=== PATIENT | male | born 1965 | race Caucasian/White ===

== ENCOUNTER 2017-05-04 06:46 | Inpatient (IN) ==
--- NOTE | 2017-05-03 21:40 | Discharge Summary ---
<Carline Mena - Last Filed: 05/03/17 21:37> Date of Encounter: 05/03/17 - Discharge Diagnosis (1) Rotator cuff tear arthropathy of right shoulder Priority: Primary Status: Acute (2) Status post total replacement of right shoulder Priority: Primary Status: Acute (3) HTN (hypertension) Priority: Secondary Status: Chronic Qualifiers: Hypertension type: essential hypertension Qualified Code(s): I10 - Essential (primary) hypertension (4) Tobacco abuse Priority: Secondary Status: Chronic - Discharge Medications Home Medications: Metoprolol XL (24 HR) Succ [Toprol Xl] 25 mg PO DAILY 01/18/16 [History] Omeprazole [PriLOSEC] 40 mg PO DAILY 08/14/16 [History] OxyCODONE Immed Rel [Roxicodone 5 MG] 5 mg PO Q6HR PRN #28 tablet 05/03/17 [Rx] Allergies/Adverse Reactions: 3 Allergy/AdvReac Type Severity Reaction Status Date / Time tramadol Allergy Nausea Verified 05/04/17 07:09 Primary care physician: Gerry Cantrell MD - Patient Status Disposition: Home, Self-Care Condition: Good - Discharge Instructions Follow Up With: Gerry Cantrell MD [Primary Care Provider] - - Hospital Course Hospital course: Mr. Hernandez is a 52 year old male - Time Spent with Patient Total time spent providing and/or coordinating discharge services: <Ismael Campbellh - Last Filed: 05/04/17 13:45> Date of Encounter: 05/04/17 Time of Encounter: 13:45 - Discharge Diagnosis (1) Rotator cuff tear arthropathy of right shoulder Priority: Primary Status: Chronic (2) Status post total replacement of right shoulder Priority: Primary Status: Acute (3) HTN (hypertension) Priority: Secondary Status: Chronic Qualifiers: Hypertension type: essential hypertension Qualified Code(s): I10 - Essential (primary) hypertension (4) Tobacco abuse Priority: Secondary Status: Chronic Primary care physician: Gerry Cantrell MD - Patient Status Functional capacity at discharge: independent ambulation Overall status at discharge: patient is progressing back to baseline - Hospital Course Hospital course: Mr. Hernandez is a 52 year old male Status post right total shoulder replacement patient discharged from same day - Time Spent with Patient Total time spent providing and/or coordinating discharge services:
--- NOTE | 2017-05-04 06:29 | History & Physical Report ---
Date of Encounter: 05/04/17 Time of Encounter: 06:29 24 Hour HP Update - Instructions Instructions: If the History and Physical is less than 30 days old and was completed prior to A.M. admission and or procedure and has NOT been updated on calendar day of procedure please complete this update prior to performing procedure. - Update Patient reports changes in Medical Condition: No Changes in examination, assessment, or condition: No Changes in Medication: No Preop tests/diagnostics Reviewed: Yes Surgery Remains Indicated: Yes Consent for Planned Operative Procedure(s) Verified: Yes - Pre-Operative Checklist Preoperative Checklist Indicated: No Prophylactic Antibiotic Ordered: Yes Is VTE Prophylaxis Indicated?: Yes
[2017-05-04] MEDS ORDERED: Dexamethasone 4 MG/ML VIAL ONE (06:57)
[2017-05-04] MEDS ORDERED: *HR* Midazolam HCl 2 MG/2 ML VIAL ONE (06:57)
[2017-05-04] MEDS ORDERED: *HR* FentaNYL (PF) 100 MCG/2 ML VIAL ONE (06:57)
[2017-05-04] MEDS ORDERED: Ondansetron 4 MG/2 ML VIAL ONE (06:57)
[2017-05-04] MEDS ORDERED: *HR* Propofol 200 MG/20 ML VIAL IVP ONE (06:58)
[2017-05-04] MEDS ORDERED: Lidocaine -MPF 2% 2 ML VIAL ONE (06:59)
[2017-05-04] MEDS ORDERED: ROPIVACAINE HCL/PF 0.5% 30 ML VIAL ONE (07:06)
[2017-05-04] MEDS ORDERED: Bupivacaine/Clonidine Syringe 1 EACH SYRINGE ONE (07:06)
[2017-05-04] MEDS ORDERED: CeFAZolin Pre 2,000 MG/100 ML 2,000 MG/100 ML BAG IVPB ONE (07:09)
[2017-05-04] MEDS ORDERED: Albuterol 2.5 MG/3 ML NEBULIZER IH ONE (07:10)
[2017-05-04] MEDS ORDERED: Lidocaine -MPF 1% 2 ML VIAL ID ONE (07:10)
[2017-05-04] MEDS ORDERED: Ringers Solution, Lactated 1,000 ML IVC SCH ×2 (07:15→10:23)
[2017-05-04] MEDS ORDERED: Albuterol 2.5 MG/3 ML NEBULIZER ONE (07:17)
--- NOTE | 2017-05-04 07:38 | Anesthesia Evaluation PreOp ---
Date of Encounter: 05/04/17 Time of Encounter: 07:35 - Past History Planned Operation: Right Total Shoulder Cardiac History: HTN Pulmonary History: Smoker FX ARTIST History: Denies Any Significant HX Other Medical History: GERD Anesthesia History: No Prior Anesthetic Complications, Past Anesthesia (Left Kne scope, Right shoulder sc ope) Alcohol Use: none Drug use: none Medications and Allergies Metoprolol XL (24 HR) Succ [Toprol Xl] 25 mg PO DAILY 01/18/16 [History] Omeprazole [PriLOSEC] 40 mg PO DAILY 08/14/16 [History] OxyCODONE Immed Rel [Roxicodone 5 MG] 5 mg PO Q6HR PRN #28 tablet 05/03/17 [Rx] 3 Allergy/AdvReac Type Severity Reaction Status Date / Time tramadol Allergy Nausea Verified 05/04/17 07:09 - Meds/Allergy Pre-op Review Medications Reviewed: Yes Allergies Reviewed: Yes Beta Blockers on Current Med List: No Anesthesia Results - Labs Laboratory Tests 11/30/15 01/18/16 03/26/16 13:00 07:33 09:45 WBC Hgb Hct Plt Count INR 1.1 Sodium 139 Potassium 4.2 Chloride 109 Carbon Dioxide 22 BUN Creatinine 08/06/16 08/06/16 04/22/17 10:43 10:43 10:10 WBC 6.8 7.3 Hgb 15.5 16.1 Hct 45.7 48.9 Plt Count 219 249 INR Sodium Potassium Chloride Carbon Dioxide BUN 13 Creatinine 04/22/17 04/22/17 10:10 10:10 WBC Hgb Hct Plt Count INR 1.0 Sodium 140 Potassium 4.1 Chloride 106 Carbon Dioxide 24 BUN Creatinine 1.06 - Imaging EKG: image reviewed (SINUS BRADYCARDIA POSSIBLE RIGHT VENTRICULAR CONDUCTION DELAY) Anesthesia Exam O2 Sat Height 1.79 m Height 1.79 m Weight 83.007 kg Weight 83.007 kg O2 Sat by Pulse Oximetry 98 Vital Signs Temp Pulse Resp BP Pulse Ox 97.9 F 58 18 134/93 98 05/04/17 07:04 05/04/17 07:04 05/04/17 07:04 05/04/17 07:04 05/04/17 07:04 Height: 5'10" Weight: 183# NPO (# of Hours): > 8 hrs Pain Scale: 0 Pain Scale Used: Numeric (1 - 10) - HEENT Pupil (Motor): Pupils equal, EOMI Mallampati: II Teeth: Missing Denture Type: Upper: Complete Oral Opening: Greater than 3 - FX ARTIST LOC: Oriented FX ARTIST Motor: Normal RUE, Normal LUE, Normal RLE, Normal LLE, Normal Face FX ARTIST Sensory: Normal: RUE, LUE, RLE, LLE, Face - Cardiac Rhythm: Regular Murmur: None JVD: No Carotid Bruit: No - Pulmonary Breath Sounds: bilateral Clear Respiratory Effort: Symmetrical Anesthesia Assess/Plan ASA Score: 2 Modified [place] Scale for Level of Consciousness: Cooperative, oriented, and tranquil Anesthetic Plan: General, Regional (Right Brachial Plexus Block) Autologous Blood: Yes Monitoring Plan: Standard Monitors Recovery Plan: PACU
[2017-05-04] MEDS ORDERED: Naloxone 0.4 MG/ML INJ IVP PRN ×2 (08:18→10:23)
[2017-05-04] MEDS ORDERED: *HR* HYDROmorphone (PF) 1 MG/ML SYRINGE IVP PRN ×2 (08:18→10:23)
[2017-05-04] MEDS ORDERED: *HR* Meperidine 25 MG/ML SYRINGE IVP PRN (08:18)
[2017-05-04] MEDS ORDERED: Ondansetron 4 MG/2 ML VIAL IVP PRN ×2 (08:18→10:23)
--- NOTE | 2017-05-04 08:22 | Anesthesia Procedures ---
Date of Encounter: 05/04/17 Time of Encounter: 08:10 Procedures: Anesthesia - Nerve Block Procedure Date: 05/04/17 Time: 08:10 Allergies/Adv Reactions: Allergies Allergy/AdvReac Type Severity Reaction Status Date / Time tramadol Allergy Nausea Verified 05/04/17 07:09 Pre-op Diagnosis: Right shoulder arthropathy Surgical Procedure: Right total shoulder replacement. Checklist: Correct Patient Identifier, Correct procedure, History checked Correct side: Right Blood Thinner: No Monitor Applied: EKG, BP, Pulse Oximetry Supplemental Oxygen via Nasal Cannula (L/min): 2 Sedation: Versed (mg): 2 Sedation: Fentanyl (mcg): 100 Indication: Post Op Analgesia Pre-op Neuro Deficits: No Block Type: Supraclavicular, Other (SCP) Catheter placed: No Sterile Technique: Yes Ultrasound used: Yes Anatomy identified: Yes Visual spread of Local: Yes Blood on Needle Aspiration: No Smooth Injection of Local: Yes Pain with Injection of Local: No Prep: Chlorhexadine Needle: 22 x 50 mm Stimuplex Local: Ropivacaine (0.5 %, 25mL Supra, 5mL SCP) Volume (cc): 30 Number of Attempts: 1 Complications: None/effective block Vitals: VSS throughout. See nursing documentation. Comments: Verbal order Dr Campbell for postop pain management. Patient tolerated well.
--- NOTE | 2017-05-04 09:31 | Orthopedic Operative Note ---
Date of procedure: 05/04/17 Pre-op diagnosis: Right shoulder cuff tear arthropathy Post-op diagnosis: same Procedure: Procedure: Total Shoulder Replacment Reverse, right Estimated blood loss: 100 cc Hardware: Metal and polyethylene replacement: Arthrex large glenoid baseplate, 2 4.5 screws. 1 6.5 screw, 42+4 glenosphere, 8 humeral stem, poly insert 3 and 6 metal Exam Under anesthesia: Full motion and no instability Procedural Notes: Irreparable tear supraspinatus tendon. Operative procedure: The patient was brought to the operating room and placed on the operating room table. After general anesthesia was administered the operative shoulder was examined. Findings were noted. The patient was placed in the modified beachchair position. All pressure points were padded appropriately. And the head was stabilized in the neutral position. The operative extremity was prepped and draped in the sterile surgical fashion. The patient received IV antibiotics prior to skin incision. A standard deltopectoral approach was made to the operative shoulder. Incision was made to the skin and subcutaneous tissue,hemo stasis was obtained with Bovie cautery. Using careful blunt dissection the cephalic vein was identified and mobilized medially. The deltopectoral interval was developed and the clavipectoral fascia was incised. The subscap was released off the lesser tuberosity and tagged with #2 FiberWire suture subscap was irreparable. The humerus was dislocated patient noted to have irreparable tear supraspinatus tendon, and the humeral cut was made along the anatomic neck. Anterior and posterior Bankart retractors were placed to expose the glenoid. The glenoid guide was seated and the centering hole was made. It was reamed with the appropriate reamer. The large baseplate was seated and secured with (2) 4.5 screws and one 6.5 screw. The baseplate was irrigated and dried and the 42+4 Glenosphere was seated and secured with the Ballard taper. The Ballard taper was tested and found to be secure the humerus was redislocated and prepared with the diaphyseal reamers, followed by a broaching process up to the appropriate size 8 in the patient's anatomic version. The metaphyseal reamer was then utilized. Trial reduction found the shoulder to be relocatable. Trial components were removed and the appropriate 8 stem was impacted in place in the patient's anatomic version. Trial reduction found the shoulder to be relocatable and stable with the appropriate 3 Nay 6 metal Trial component was removed and the real implants was seated and secured the shoulder was reduced. The shoulder had excellent motion and excellent stability and no evidence of dislocation. The deep tissue was irrigated with pulse irrigation. Shoulder was closed by the PA. The deltopectoral interval was closed with a running #1 PDS suture, subcutaneous tissue was irrigated and closed with 0 PDS suture, the skin was closed with Dermabond. The patient was placed in a sterile dressing, abduction brace and extubated. The patient was then transferred to the recovery room in stable condition. Anesthesia: JOSE Surgeon: Ismael Campbell Multimedia Developer: Carline Mena Condition: stable Disposition: PACU
--- NOTE | 2017-05-04 10:07 | Anesthesia Evaluation Post Op ---
Date of Encounter: 05/04/17 Time of Encounter: 10:06 - Vital Signs Vital Signs: Vital Signs/O2 Sat, Most Current Temp Pulse Resp BP Pulse Ox 97.9 F 72 18 138/95 98 05/04/17 07:04 05/04/17 08:25 05/04/17 08:25 05/04/17 08:25 05/04/17 08:25 - Lungs Lungs: Clear Ascult./Percussion - Airway Airway: Non-obstructed - Cardiovascular Regular Rate - Mental Status Mental Status: Alert & Oriented, Answers Appropriately - Pain Pain Scale: 0 Pain Scale used: Numeric (1 - 10) - Nausea Vomiting Nausea Vomiting: Not Present - Hydration Hydration: Ice chips, Has not voided - Discharge PostOp Status: Transfer Patient to floor
[2017-05-04] MEDS ORDERED: *HR* OxyCODONE Immed Rel 5 MG TABLET PO PRN ×2 (10:23)
[2017-05-04] MEDS ORDERED: Metoprolol XL (24 HR) Succ 25 MG TAB.ER.24H PO SCH (10:23)
[2017-05-04 13:53] VITALS: BP 115/77
[2017-05-04] MEDS ORDERED: ceFAZolin 2,000 MG in D5% in Water 100 ML IVPB SCH (16:00)
[2017-05-04] MEDS ORDERED: *HR* Enoxaparin 30 MG/0.3 ML SYRINGE SQ SCH ×2 (18:00)
[2017-05-04] MEDS ORDERED: MOM Conc 10 ML UD.LIQ PO PRN (21:00)
[2017-05-04] MEDS ORDERED: Sennosides 8.6 MG TABLET PO PRN (21:00)
[2017-05-04] MEDS ORDERED: Temazepam 15 MG CAPSULE PO PRN (21:00)
--- NOTE | 2017-05-05 15:26 | Physician Discharge Referral ---
Home Health/Hosp Referral Info Transfer to: Home Health Attending Provider: Provider in Charge Post Discharge: PCP - Diagnosis (1) Rotator cuff tear arthropathy of right shoulder Priority: Primary Status: Chronic (2) Status post total replacement of right shoulder Priority: Primary Status: Acute (3) HTN (hypertension) Priority: Secondary Status: Chronic (4) Tobacco abuse Priority: Secondary Status: Chronic - Respiratory Orders None Smoking Cessation: Smoking cessation has been advised. For more information, call the [place] Tobacco Quit Line at 2-444-LESW-NOW. - Diet/Nutrition Diet/Nutrition Orders: Regular - Activity Activity Orders: Up ad kimberly, Ambulate - Services Needed Following services are medically necessary services: Nursing, Home Health Aide, Physical Therapy, Occupational Therapy Home Care Orders: Opsite dressing, leave intact until first post-operative visit. If dressing becomes >50% saturated, contact office, remove dressing and place appropriate dressing in its place. Do not allow for dressing to get wet. Shoulder Precautions x 6 weeks. Apply cold therapy wrap 3-6x/day for 20 minutes at a time. Encourage ambulation throughout the day. Use Incentive spirometer 10x/hour. Elevate affected extremity above heart as tolerated. NWB to affected upper extremity x 6 weeks. Will remove brace at first post-operative appointment. OK to remove during PT/ OT and Home exercises. - Transfer Medications Home Medications: Metoprolol XL (24 HR) Succ [Toprol Xl] 25 mg PO DAILY 01/18/16 [History] Omeprazole [PriLOSEC] 40 mg PO DAILY 08/14/16 [History] OxyCODONE Immed Rel [Roxicodone 5 MG] 5 mg PO Q6HR PRN #28 tablet 05/03/17 [Rx] Allergies/Adverse Reactions: 3 Allergy/AdvReac Type Severity Reaction Status Date / Time tramadol Allergy Nausea Verified 05/04/17 07:09 Certification: Further, I certify that my clinical findings support that this patient is homebound (i.e. absences from home require considerable and taxing effort and are for medical reasons or cheondoism services or infrequently or short duration when for other reasons) because: Homebound Reason: Post-surgery restriction and or conditions limit ability to leave home Attestation: My signature below is to certify that this patient is under my care and that I, or nurse practitioner, or a physician's executive staff assistant working with me, has a face-to -face encounter with this patient.
== END 2017-05-04 16:55 | disposition home or self-care (01) | DRG 483 ==
LOC: SAMDAY 06:46 → 3NENU 10:27
PROVIDERS: ADMIT Orthopaedic Surgery; ATTEND Orthopaedic Surgery

== ENCOUNTER 2019-06-23 12:31 | Inpatient (IN) ==
[2019-06-23] MEDS ORDERED: Albuterol 2.5 MG/3 ML NEBULIZER IH PRN (12:56)
[2019-06-23] MEDS ORDERED: CeFAZolin Syr 2,000MG/20 ML 2,000 MG/20 ML SYRINGE IVPB ONE (12:56)
[2019-06-23] MEDS ORDERED: Ringers Solution, Lactated 1,000 ML IVC SCH ×2 (13:00→18:18)
[2019-06-23] MEDS ORDERED: ROPIVACAINE/PF/NS 0.25% 1 EACH SYRINGE INTRAART ONE (13:20)
[2019-06-23] MEDS ORDERED: Ropivacaine/PF 0.5% 30 ML VIAL ONE (13:20)
[2019-06-23] MEDS ORDERED: *HR* FentaNYL (PF) 100 MCG/2 ML VIAL ONE ×2 (13:38→15:46)
[2019-06-23] MEDS ORDERED: *HR* Midazolam HCl 2 MG/2 ML VIAL ONE (13:38)
[2019-06-23] MEDS ORDERED: *HR* Propofol 200 MG/20 ML VIAL IVP ONE (13:39)
[2019-06-23] MEDS ORDERED: *HR* Succinylcholine 200 MG/10 ML VIAL IVP ONE (13:41)
[2019-06-23] MEDS ORDERED: Lidocaine -MPF 2% 2 ML VIAL ONE (13:41)
[2019-06-23] MEDS ORDERED: Lidocaine HCL 4 ML Topical Solution (Laryng-O-Jet Kit Sterile Pak) TP ONE (13:44)
[2019-06-23] MEDS ORDERED: *HR* Labetalol 20 MG/4 ML SYRINGE IVP PRN (13:45)
[2019-06-23] MEDS ORDERED: *HR* Promethazine 25 MG/ML VIAL IVP PRN (13:45)
[2019-06-23] MEDS ORDERED: *HR* OxyCODONE Immed Rel 5 MG TABLET PO PRN (13:45)
[2019-06-23] MEDS ORDERED: Gabapentin 300 MG CAPSULE PO ONE (13:45)
[2019-06-23] MEDS ORDERED: Ethanol\\Acetic Acid\\Na Ace\\Ben 1,000 ML IRRIG.SOLN IR ONE (15:04)
[2019-06-23] MEDS ORDERED: *HR* PHENYLEPHRINE 1,000 MCG/10 ML SYRINGE IVP ONE (15:31)
[2019-06-23] MEDS ORDERED: Ondansetron 4 MG/2 ML VIAL ONE (15:35)
[2019-06-23] MEDS ORDERED: Dexamethasone 4 MG/ML VIAL ONE (15:35)
[2019-06-23] MEDS ORDERED: EPHEDrine 50 MG/ML VIAL ONE (15:58)
[2019-06-23] MEDS: *HR* HYDROmorphone (PF) 1 MG/ML SYRINGE IVP PRN ×2 (17:11→17:40)
[2019-06-23 17:26] LABS: Hematocrit 43.4 % (37.5-50.1); Hemoglobin 15.2 g/dL (12.9-16.9)
[2019-06-23] MEDS ORDERED: *HR* Enoxaparin 30 MG/0.3 ML SYRINGE SQ SCH (18:00)
[2019-06-23] MEDS ORDERED: Acetaminophen 325 MG TABLET PO PRN (18:18)
[2019-06-23] MEDS ORDERED: *HR* OxyCODONE/APAP 5/325 TABLET PO PRN (18:18)
[2019-06-23] MEDS ORDERED: MOM Conc 10 ML UD.LIQ PO PRN (18:18)
[2019-06-23] MEDS ORDERED: Naloxone 0.4 MG/ML INJ IVP PRN (18:18)
[2019-06-23] MEDS ORDERED: Ondansetron 4 MG/2 ML VIAL IVP PRN (18:18)
[2019-06-23] MEDS ORDERED: Temazepam 15 MG CAPSULE PO PRN (18:18)
[2019-06-23] MEDS ORDERED: Sennosides 8.6 MG TABLET PO PRN (18:18)
[2019-06-23] MEDS ORDERED: Ibuprofen 800 MG TABLET PO PRN (18:18)
[2019-06-24] MEDS: *HR* OxyCODONE Immed Rel 5 MG TABLET PO PRN ×3 (03:42→13:26)
[2019-06-24 05:56] LABS: Hematocrit 40.9 % (37.5-50.1)
[2019-06-24] MEDS ORDERED: *HR* Enoxaparin 30 MG/0.3 ML SYRINGE SQ SCH (06:00)
[2019-06-24 06:17] LABS: BUN/Creatinine Ratio 19 (6-26); Blood Urea Nitrogen 19 mg/dL (6-20); Calcium 9.4 mg/dL (8.6-10.3); Carbon Dioxide 23 mEq/L (23-29); Chloride 104 mEq/L (98-107); Glucose 137 mg/dL (70-105); Osmolality,Calculated 288 (280-300); Potassium 3.9 mEq/L (3.5-5.1); Sodium 137 mEq/L (136-145); eGFR For African Americans > 60 (> 60); eGFR For Non-African Americans > 60 (> 60)
[2019-06-24 07:01] VITALS: BP 118/70
[2019-06-24] MEDS ORDERED: Metoprolol XL (24 HR) Succ 25 MG TAB.ER.24H PO SCH (09:00)
[2019-06-24] MEDS ORDERED: Cyanocobalamin (B-12) 1,000 MCG TABLET PO SCH (09:00)
== END 2019-06-24 13:45 | disposition home or self-care (01) | DRG 483 ==
LOC: SAMDAY 12:31 → 3NENU 18:13
PROVIDERS: ADMIT Orthopaedic Surgery; ATTEND Orthopaedic Surgery

== ENCOUNTER 2020-07-07 18:45 | Observation (INO) ==
[2020-07-07] MEDS ORDERED: Isovue-370 500 ML BOTTLE IVP ONE (19:21)
[2020-07-07 19:27] LABS: Basophils % 0.3 %; Eosinophils # 0.1 K/mcL (0.0-0.6); Eosinophils % 1.1 %; Hematocrit 45.6 % (37.5-50.1); Hemoglobin 15.5 g/dL (12.9-16.9); Immature Granulocytes % 0.3 % (0-4); Lymphocytes # 2.9 K/mcL (0.6-4.6); Lymphocytes % 28.2 %; Mean Corpuscular Hemoglobin 32.5 pg (28.0-33.3); Mean Corpuscular Volume 95.6 fL (83.0-100.0); Mean Platelet Volume 10.2 fL (9.4-12.4); Monocytes # 0.7 K/mcL (0.0-1.3); Monocytes % 6.5 %; Neutrophils # 6.5 K/mcL (1.6-8.9); Platelet Count 254 K/mcL (140-400); Red Blood Count 4.77 M/mcL (4.19-5.50); Red Cell Distribution Width 12.7 % (11.5-14.5); Segmented Neutrophils % 63.6 %; White Blood Count 10.2 K/mcL (4.3-11.1)
[2020-07-07 19:53] LABS: Alanine Aminotransferase 12 Units/L (7-52); Albumin 4.6 g/dL (3.5-5.7); Albumin/Globulin Ratio 1.5 (1.1-2.2); Alkaline Phosphatase 81 Units/L (34-104); Aspartate Amino Transferase 12 Units/L (13-39); BUN/Creatinine Ratio 15 (6-26); Bilirubin,Total 0.3 mg/dL (0.3-1.0); Blood Urea Nitrogen 15 mg/dL (6-20); Calcium 9.7 mg/dL (8.6-10.3); Carbon Dioxide 25 mEq/L (23-29); Chloride 103 mEq/L (98-107); Glucose 88 mg/dL (70-105); Osmolality,Calculated 284 (280-300); Potassium 3.2 mEq/L (3.5-5.1); Sodium 137 mEq/L (136-145); Total Protein 7.6 g/dL (6.4-8.9); Troponin I < 0.03 ng/mL (< 0.04); eGFR For African Americans > 60 (> 60); eGFR For Non-African Americans > 60 (> 60)
[2020-07-07] MEDS ORDERED: Aspirin 325 MG TABLET PO ONE (20:55)
[2020-07-07] MEDS ORDERED: Nitroglycerin 0.4 MG TAB.SUBL SL PRN (20:55)
[2020-07-07] MEDS ORDERED: Potassium Chloride Elixir 20 MEQ/15 ML UDC PO ONE (21:22)
[2020-07-07] MEDS ORDERED: Perflutren Lipid Microsphere 1.3 ML in 0.9 % Sodium Chloride 8.7 ML IVP PRN (22:39)
[2020-07-07] MEDS ORDERED: Naloxone 0.4 MG/ML INJ IVP PRN (22:46)
[2020-07-07] MEDS ORDERED: Acetaminophen 325 MG TABLET PO PRN (22:46)
[2020-07-07] MEDS ORDERED: Ondansetron 4 MG/2 ML VIAL IVP PRN (22:46)
[2020-07-07] MEDS ORDERED: GI Cocktail 40 ML EACH PO ONE (23:01)
[2020-07-08 01:35] LABS: Mean Corpuscular HGB Conc 33.4 g/dL (31.6-35.5); Mean Corpuscular Hemoglobin 32.8 pg (28.0-33.3); Mean Corpuscular Volume 98.1 fL (83.0-100.0); Mean Platelet Volume 10.5 fL (9.4-12.4); Platelet Count 224 K/mcL (140-400); Red Blood Count 4.18 M/mcL (4.19-5.50); Red Cell Distribution Width 12.6 % (11.5-14.5); White Blood Count 7.8 K/mcL (4.3-11.1)
[2020-07-08 01:37] LABS: Hemoglobin 13.7 g/dL (12.9-16.9)
[2020-07-08 01:51] LABS: BUN/Creatinine Ratio 15 (6-26); Blood Urea Nitrogen 14 mg/dL (6-20); Carbon Dioxide 26 mEq/L (23-29); Chloride 103 mEq/L (98-107); Chol/HDL Ratio 5.1 (0-4.9); Cholesterol 137 mg/dL (< 200); Glucose 114 mg/dL (70-105); HDL Cholesterol 27 mg/dL (40-59); LDL Cholesterol,Calculated 87 mg/dL (< 100); Magnesium 1.4 mg/dL (1.6-2.6); Osmolality,Calculated 285 (280-300); Phosphorous 3.3 mg/dL (2.7-4.5); Sodium 137 mEq/L (136-145); Triglycerides 114 mg/dL (< 150); eGFR For African Americans > 60 (> 60); eGFR For Non-African Americans > 60 (> 60)
[2020-07-08 07:03] LABS: Estimated Average Glucose 123 mg/dl
[2020-07-08] MEDS: Aspirin Enteric Coated 81 MG Tablet PO SCH (07:40)
[2020-07-08] MEDS ORDERED: Potassium Chloride 40 MEQ, Lidocaine 1% 2 ML in 0.9 % Sodium Chloride 500 ML IVPB ONE (08:04)
[2020-07-08] MEDS: Nicotine 14 MG PATCH.TD24 TD SCH (16:21)
[2020-07-09 05:29] LABS: Hemoglobin 13.5 g/dL (12.9-16.9); Mean Corpuscular HGB Conc 32.9 g/dL (31.6-35.5); Mean Corpuscular Hemoglobin 31.8 pg (28.0-33.3); Mean Corpuscular Volume 96.7 fL (83.0-100.0); Mean Platelet Volume 10.1 fL (9.4-12.4); Platelet Count 232 K/mcL (140-400); Red Blood Count 4.24 M/mcL (4.19-5.50); Red Cell Distribution Width 12.4 % (11.5-14.5); White Blood Count 7.1 K/mcL (4.3-11.1)
[2020-07-09 05:52] LABS: BUN/Creatinine Ratio 15 (6-26); Blood Urea Nitrogen 14 mg/dL (6-20); Calcium 8.9 mg/dL (8.6-10.3); Carbon Dioxide 25 mEq/L (23-29); Chloride 106 mEq/L (98-107); Glucose 109 mg/dL (70-105); Osmolality,Calculated 285 (280-300); Potassium 3.8 mEq/L (3.5-5.1); Sodium 137 mEq/L (136-145); eGFR For African Americans > 60 (> 60); eGFR For Non-African Americans > 60 (> 60)
[2020-07-09] MEDS ORDERED: Regadenoson 0.4 MG/5 ML SYRINGE IVP ONE (06:00)
[2020-07-09] MEDS: Aspirin Enteric Coated 81 MG Tablet PO SCH (09:21)
[2020-07-09] MEDS: Metoprolol XL (24 HR) Succ 25 MG TAB.ER.24H PO SCH (09:21)
[2020-07-09] MEDS: Nicotine 14 MG PATCH.TD24 TD SCH (09:23)
[2020-07-10 07:53] LABS: Hematocrit 42.9 % (37.5-50.1); Hemoglobin 14.5 g/dL (12.9-16.9); Mean Corpuscular HGB Conc 33.8 g/dL (31.6-35.5); Mean Corpuscular Hemoglobin 32.7 pg (28.0-33.3); Mean Corpuscular Volume 96.6 fL (83.0-100.0); Mean Platelet Volume 10.1 fL (9.4-12.4); Platelet Count 219 K/mcL (140-400); Red Blood Count 4.44 M/mcL (4.19-5.50); Red Cell Distribution Width 12.4 % (11.5-14.5); White Blood Count 6.8 K/mcL (4.3-11.1)
[2020-07-10 08:49] LABS: INR 1.1; Prothrombin Time 13.1 Seconds (9.4-12.1)
[2020-07-10] MEDS: Aspirin Enteric Coated 81 MG Tablet PO SCH (09:35)
[2020-07-10] MEDS: Nicotine 14 MG PATCH.TD24 TD SCH (09:35)
[2020-07-10] MEDS: Metoprolol XL (24 HR) Succ 25 MG TAB.ER.24H PO SCH (09:36)
[2020-07-10] MEDS ORDERED: 0.9 % Sodium Chloride 1,000 ML ONE (10:04)
[2020-07-10] MEDS ORDERED: *HR* FentaNYL (PF) 100 MCG/2 ML VIAL ONE (10:04)
[2020-07-10] MEDS ORDERED: Heparin 1,000 UNITS/500 mL 500 ML ONE (10:04)
[2020-07-10] MEDS ORDERED: *HR* Heparin 10,000 UNIT/10 ML VIAL ONE (10:04)
[2020-07-10] MEDS ORDERED: *HR* Midazolam HCl 2 MG/2 ML VIAL ONE (10:04)
[2020-07-10] MEDS ORDERED: Nitroglycerin 1,000 MCG/10 ML VIAL IV ONE (10:05)
[2020-07-10] MEDS ORDERED: ISOVUE-370 200 ML INFUS..BTL ONE (10:05)
[2020-07-10 14:22] VITALS: BP 130/85
[2020-07-10] MEDS ORDERED: Ranolazine 500 MG TAB.ER.12H PO SCH (21:00)
== END 2020-07-10 15:03 | disposition home or self-care (01) ==
LOC: EMEROOARM 18:45 → 3BNU 18:45 → SUATTDRO 22:12 → 3BNU 22:32
PROVIDERS: ADMIT Student in an Organized Health Care Education/Training Program; ATTEND Family Medicine